=== PATIENT | male | born 1985 | race Two or more races ===

== ENCOUNTER 2021-01-06 17:16 | Emergency (ER) | payer OTHER ==
[2021-01-06 17:56] LABS: BILIRUBIN NEGATIVE (NEGATIVE); BLOOD NEGATIVE Ery/uL (NEGATIVE); CLARITY CLEAR (CLEAR); COLOR YELLOW (YELLOW); GLUCOSE (U) NORMAL (NORMAL); LEUKOCYTES NEGATIVE Leu/uL (NEGATIVE); NITRITE NEGATIVE (NEGATIVE); PROTEIN NEGATIVE (NEGATIVE); SPECIFIC GRAVITY 1.015 (1.001-1.030); UROBILINOGEN 0.2 mg/dL (0.2-1.0); pH 6.5 (5.0-9.0)
[2021-01-06 18:01] LABS: AMPHETAMINES POSITIVE (NEGATIVE); BARBITURATES NEGATIVE (NEGATIVE); ECSTASY (MDMA) NEGATIVE (NEGATIVE); MARIJUANA (THC) POSITIVE (NEGATIVE); METHADONE NEGATIVE (NEGATIVE); OPIATES NEGATIVE (NEGATIVE); OXYCODONE NEGATIVE (NEGATIVE)
[2021-01-06 18:06] LABS: BASOPHIL 0.6 % (0-2); EOSINOPHIL 1.1 % (0-5); HCT 38.7 % (42.0-52.0); LYMPHOCYTE 19.8 % (15-48); MCH 29.3 pg (25.0-31.0); MCHC 33.6 g/dL (32.0-36.0); MCV 87.2 fL (78.0-100.0); MONOCYTE 9.6 % (0-12); MPV 9.1 fL (6.0-9.5); NEUTROPHIL 68.6 % (41-80); NRBC 0; PLT 202 K/uL (150-400); RBC 4.44 M/uL (4.70-6.00); RDW 13.2 % (11.5-14.0); WBC 7.1 K/uL (4.0-10.5)
[2021-01-06 18:21] LABS: ALBUMIN 2.9 g/dL (3.4-5.0); ALKALINE PHOSHATASE 76 U/L (46-116); ALT 54 U/L (16-63); AST 25 U/L (15-37); BILIRUBIN - TOTAL 0.3 mg/dL (0.2-1.0); BUN 7 mg/dL (7-18); BUN/CREAT RATIO (CALC) 10.3 RATIO; CHLORIDE 104 mmol/L (98-107); CO2 (BICARBONATE) 28 mmol/L (21-32); CREATININE 0.68 mg/dL (0.67-1.17); GLOBULIN (CALCULATION) 4.8 g/dL; GLUCOSE 75 mg/dL (74-106); POTASSIUM 3.8 mmol/L (3.5-5.1); TOTAL PROTEIN 7.7 g/dL (6.4-8.2)
[2021-01-06 18:31] LABS: ACETAMINOPHEN (TYLENOL) < 2.0 ug/mL (10.0-30.0)
== END 2021-01-07 11:50 | disposition other institution (70) ==
LOC: FER 17:16
PROVIDERS: Emergency Medicine
DX: R45.851 Suicidal ideations (principal); F19.10 Other psychoactive substance abuse, uncomplicated; U07.1 COVID-19; D64.9 Anemia, unspecified; F17.200 Nicotine dependence, unspecified, uncomplicated; Z23 Encounter for immunization
CPT/HCPCS: 36415; 80053; 80305; 81003; 85025; 90471; 90715; G0480; U0002